=== PATIENT | female | born 1975 | race Asian ===

== ENCOUNTER 2016-10-14 09:26 | Emergency (ER) | payer MEDICARE, MEDICAID ==
[~2016-10-14] VITALS: Ht 154.9 cm; Wt 63.5 kg
[~2016-10-14 09:26] MED LIST: BUS5 PO; CLOZ25TA PO; DIVA250T60 PO; DOCU-144 PO
[2016-10-14 09:32] VITALS: Ht 154.9 cm; Wt 63.5 kg
[2016-10-14] MEDS ORDERED: LORA-441 PO (10:00)
[2016-10-14] MEDS ORDERED: PROP10TA6 PO (10:00)
[2016-10-14] MEDS ORDERED: CLOZ200T PO (10:00)
[2016-10-14] MEDS ORDERED: TRAZ50TA18 PO (10:00)
[2016-10-14] MEDS ORDERED: LIT300 PO (10:00)
[2016-10-14] MEDS ORDERED: CLOZ50TA PO (10:00)
[2016-10-14] MEDS ORDERED: RANI150T5 PO (10:02)
[2016-10-14] MEDS ORDERED: IBUP200C PO (10:02)
[2016-10-14] MEDS ORDERED: ATEN-51 PO (10:02)
[2016-10-14] MEDS ORDERED: FOLI-49 PO (10:02)
[2016-10-14] MEDS ORDERED: DOCU-144 PO (10:02)
[2016-10-14] MEDS ORDERED: GUAI-111 PO (10:10)
[2016-10-14] MEDS ORDERED: ACET325T45 PO (10:10)
--- NOTE | 2016-10-14 10:14 | ERA ---
ER Documentation Chief Complaint Date/Time DATE: 10/14/16 TIME: 10:12 Chief Complaint cardoso; cough x 5 days; runny nose HPI Patient is a 41-year-old female with history of schizophrenia presents with her sister. Patient complains of flulike symptoms and a cough for the past week. Patient states fever without symptoms of fever including chills or sweating but has not taken her temperature. Pt denies weight loss, nausea, vomiting, diarrhea, constipation, hyperhidrosis, rigors, fatigue, dyspnea, malaise. ROS All systems reviewed and are negative except as per history of present illness. Medications Home Meds Active Scripts Acetaminophen* (Acetaminophen*) 325 Mg Tablet, 325 MG PO Q4H Y for PAIN AND OR ELEVATED TEMP, #30 TAB Prov:ASAD AVALOS PA-C 10/14/16 Guaifenesin/Pseudoephedrne HCl (Mucinex D ER 600-60 mg Tablet) 1 Each Tab.er.12h , 1 EACH PO BID for 7 Days, TAB Prov:ASAD AVALOS PA-C 10/14/16 Reported Medications Ibuprofen* (Ibuprofen*) 200 Mg Capsule, 600 MG PO TID Y for PAIN, CAP 10/14/16 Docusate Sodium* (Colace*) 100 Mg Capsule, 100 MG PO BID, #60 CAP 10/14/16 Atenolol* (Atenolol*) 25 Mg Tablet, 25 MG PO DAILY, #30 TAB 10/14/16 Folic Acid* (Folic Acid*) 1 Mg Tablet, 1 MG PO DAILY, TAB 10/14/16 Ranitidine Hcl* (Ranitidine Hcl*) 150 Mg Tablet, 150 MG PO HS, #30 TAB 10/14/16 Lorazepam* (Ativan*) 0.5 Mg Tablet, 0.5 MG PO BID, #30 TAB 10/14/16 Propranolol Hcl* (Propranolol Hcl*) 10 Mg Tablet, 10 MG PO TID, TAB 10/14/16 Trazodone Hcl* (Trazodone Hcl*) 50 Mg Tablet, 50 MG PO QHS, #30 TAB 10/14/16 Clozapine (Clozapine) 200 Mg Tablet, 200 MG PO QPM, TAB 10/14/16 Clozapine (Clozapine) 50 Mg Tablet, 500 MG PO QHS, TAB 10/14/16 [place] Carbonate* ([place]*) 300 Mg Cap, 300 MG PO TID, CAP 10/14/16 Clozapine (Clozaril) 25 Mg Tablet, 25 MG PO BID WITH MEALS 02/08/14 Buspirone Hcl* (Buspar*) 5 Mg Tab, 5 MG PO DAILY, TAB 02/08/14 Docusate Sodium* (Colace*) 100 Mg Capsule, 100 MG PO BID, CAP 02/08/14 Divalproex Sodium* (Depakote*) 250 Mg Tablet.dr, 250 MG PO BID, TAB 02/08/14 Allergies Allergies: Coded Allergies: No Known Allergy (Unverified , 02/08/14) PMhx/Soc History of Surgery: Yes (D&C) Anesthesia Reaction: No Hx Neurological Disorder: No Hx Respiratory Disorders: Yes (ASTHMA) Hx Cardiac Disorders: No Hx Psychiatric Problems: Yes (SCHIZO,DEPRESSION) Hx Miscellaneous Medical Probl: Yes Hx Alcohol Use: No Hx Substance Use: No Hx Tobacco Use: Yes Smoking Status: Current every day smoker Physical Exam Vitals Vital Signs Date Time Temp Pulse Resp B/P Pulse Ox O2 Delivery O2 Flow Rate FiO2 10/14/16 09:32 97.0 80 18 137/74 99 Physical Exam Const: With a 41-year-old female presented with her sister with a history of schizophrenia Head: Atraumatic Eyes: Normal Conjunctiva ENT: Normal External Ears, Nose and Mouth. Neck: Full range of motion..~ No meningismus. Resp: Clear to auscultation bilaterally Cardio: Regular rate and rhythm, no murmurs Abd: Soft, non tender, non distended. Normal bowel sounds Skin: No petechiae or rashes Back: No midline or flank tenderness Ext: No cyanosis, or edema Neur: Awake and alert Psych: Normal Mood and Affect Procedures/MDM Patient is a 41-year-old male who has a history of schizophrenia. Patient presents with her sister who is the historian seems reliable. Patient complains of a sore throat and flulike symptoms. Patient states that she has a fever. Patient stated that her fever was 5. Patient is unreliable and upon questioning the patient states that she did not check her fever. Upon physical examination there is exudates and erythematous oropharynx. There was cervical lymphadenopathy in the anterior cervical chains. Patient denies cough. Center score 4 out of 5 we will go ahead and treat for typical pharyngitis. At this time I do not suspect there to be any endangerment of the airway. Patient will be discharged with return precautions. Departure Diagnosis: Primary Impression: Acute bronchitis Qualified Code: J20.9 - Acute bronchitis, unspecified organism Condition: Stable Patient Instructions: Bronchitis, No Antibiotic (Adult) Additional Instructions: Follow up with your PCP within the next 1-3 days for a more thorough evaluation and a possible referral to a specialist. Return the the emergency department immediately if symptoms worsen or change. If you have any questions regarding medications, ask your pharmacist or us before you leave. If any adverse reactions occur while taking your medications, discontinue the treatment and return to the emergency department immediately. Take your medications as directed, and complete the entire course of treatment. ASAD AVALOS PA-C Oct 14, 2016 10:14
== END 2016-10-14 10:52 | disposition home or self-care (01) ==
LOC: FTE 09:26
DX: J20.9 Acute bronchitis, unspecified (principal); J45.909 Unspecified asthma, uncomplicated; F17.210 Nicotine dependence, cigarettes, uncomplicated
CPT/HCPCS: 99283

== ENCOUNTER → 2019-04-29 | Outpatient (CLI) | payer MEDICARE, OTHER ==
[~2019-04-29] MED LIST changes: +ACET325T45 PO; +ATEN-51 PO; +CLOZ200T PO; +CLOZ50TA PO; +FOLI-49 PO; +GUAI-111 PO; +IBUP-1982 PO; +LIT300 PO; +LORA-441 PO; +PROP10TA6 PO; +RANI150T5 PO; +TRAZ-111 PO
== END | disposition home or self-care (01) ==
LOC: U/S 14:53
PROVIDERS: ATTEND Obstetrics & Gynecology
DX: R19.00 Intra-abdominal and pelvic swelling, mass and lump, unspecified site (principal)
CPT/HCPCS: 76856